=== PATIENT | female | born 1995 | race African-American/Black ===

== ENCOUNTER 2022-08-27 14:54 | Emergency (ER) | payer BC ==
[~2022-08-27] VITALS: Ht 154.9 cm; Wt 56.7 kg
[2022-08-27] MEDS ORDERED: IBUPROFEN 600 MG TAB PO STA (15:33)
[2022-08-27] MEDS ORDERED: IBUPROFEN 600 MG TAB ONE (15:54)
== END 2022-08-27 18:00 | disposition home or self-care (01) ==
LOC: FSED 16:51
DX: R50.9 Fever, unspecified (principal); J06.9 Acute upper respiratory infection, unspecified; R05.9 Cough, unspecified
CPT/HCPCS: 71046; 83518; 87400; 99283